=== PATIENT | male | born 1990 | race Caucasian/White ===

== ENCOUNTER 2016-08-25 19:10 | Emergency (ER) | payer OTHER, BC ==
[2016-08-25] MEDS ORDERED: Bacitracin Oint 1 GM U/D Packet TOP ONE (19:36)
[2016-08-25] MEDS ORDERED: Diphtheria,Pertussis(Acell),Tetanus Vaccine 0.5 ML Syringe IM ONE (19:36)
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
[2016-08-25] MEDS ORDERED: Lidocaine 1% 10 ML MDV INJECT ONE (20:53)
[2016-08-25] MEDS ORDERED: Lidocaine 1% 20 ML MDV INJECT ONE (21:01)
[2016-08-25 21:56] VITALS: BP 121/64
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
== END 2016-08-25 21:55 | disposition home or self-care (01) ==
LOC: MW.ED 19:10
DX: S62.604A Fracture of unspecified phalanx of right ring finger, initial encounter for closed fracture (principal); W22.8XXA Striking against or struck by other objects, initial encounter
CPT/HCPCS: 11730; 70450; 70450-26; 73140-26-F4; 73140-26-F8; 73140-F4; 73140-F8; 90471; 90715; 99283; 99284-25

== ENCOUNTER 2023-07-19 14:02 | Emergency (ER) | payer SELFPAY ==
[2023-07-19] MEDS ORDERED: Lidocaine 1% 5 ML VIAL INJECT ONE (14:06)
[2023-07-19] MEDS ORDERED: Diphtheria,Pertussis(Acell),Tetanus Vaccine 0.5 ML Syringe IM ONE (14:06)
[2023-07-19 17:03] VITALS: BP 135/76; PULSE 66
== END 2023-07-19 17:22 | disposition home or self-care (01) ==
LOC: MW.ED 14:02
DX: S61.217A Laceration without foreign body of left little finger without damage to nail, initial encounter (principal); Z23 Encounter for immunization; W26.8XXA Contact with other sharp object(s), not elsewhere classified, initial encounter
CPT/HCPCS: 12001; 90471; 90715; 99282-25; 99283; J3490